=== PATIENT | female | born 1995 | race Caucasian/White ===

== ENCOUNTER 2016-09-21 16:48 | Observation (INO) | payer OTHER ==
[~2016-09-21] VITALS: Ht 175.3 cm; Wt 63.3 kg
[2016-09-21 17:02] VITALS: BP 112/69; TEMP 99
[2016-09-21 18:16] LABS: PLATELET COUNT 246 K/uL (152-353)
[2016-09-21 18:22] LABS: POTASSIUM 4.2 mmol/L (3.6-5.2); SODIUM 129 mmol/L (136-145)
[2016-09-21 19:30] VITALS: BP 140/88; TEMP 99.5
[2016-09-21 20:00] VITALS: BP 111/78; TEMP 98.8
[2016-09-21 21:11] LABS: PARTIAL THROMBOPLASTIN TIME 33.4 SECONDS (24.5-33.6)
[2016-09-21 21:48] VITALS: BP 111/78; TEMP 98.8; Ht 175.3 cm; Wt 63.3 kg
[2016-09-22] VITALS: BP 116/69; TEMP 99
[2016-09-22 04:00] VITALS: BP 99/68; TEMP 99.6
[2016-09-22 08:00] VITALS: BP 95/53; TEMP 98.8
[2016-09-22 09:05] LABS: PLATELET COUNT 222 K/uL (152-353)
[2016-09-22 09:20] LABS: POTASSIUM 3.2 mmol/L (3.6-5.2); SODIUM 130 mmol/L (136-145)
[2016-09-22 11:54] VITALS: BP 85/47; TEMP 98.2
[2016-09-22 16:17] VITALS: BP 124/71; TEMP 99.3
--- NOTE | 2016-09-22 17:39 | NUR ---
IV SITE D/C'D WITH TIP INTACT AND SITE CARE DONE. D/C INSTRUCTIONS GIVEN TO MOTHER AND PT AND BOTH VERBALIZE UNDERSTANDING. PT OUT VIA W/C WITH NAD.
== END 2016-09-22 17:50 | disposition home or self-care (01) ==
LOC: ED 16:48 → MED/SURG 18:35
PROVIDERS: Emergency Medicine
DX: E87.1 Hypo-osmolality and hyponatremia (principal); E87.6 Hypokalemia; R73.9 Hyperglycemia, unspecified
CPT/HCPCS: 36415; 36591; 80053; 80307; 81000; 82550; 83735; 83880; 84484; 85027; 85379; 85610; 85730; 87081; 87804; 87880; 93005; 93306; 96372; 99220; 99284; G0378; G0479; J1650